=== PATIENT | female | born 1955 | race Caucasian/White ===

== ENCOUNTER 2017-03-28 09:20 | Emergency (ER) | payer OTHER ==
[~2017-03-28] VITALS: Ht 162.6 cm; Wt 82.1 kg
[~2017-03-28 09:20] MED LIST: AMA1 PO; ASPIR-LOW81 M1 PO; CHERATUSSIN AC 15 ML; DOXYCYCLINE MO100 MG PO; HUM7525 SC; HYDROCHLOROTHIAZIDE PO; LANTUS SOLOS100 U/M1 SQ; LISINOPRIL PO; VICTOZA SC; ZOC20 PO
[2017-03-28 10:38] VITALS: BP 145/80
== END 2017-03-28 10:41 | disposition home or self-care (01) ==
LOC: ED 09:20
DX: S90.112A Contusion of left great toe without damage to nail, initial encounter (principal); E11.9 Type 2 diabetes mellitus without complications; E78.00 Pure hypercholesterolemia, unspecified; Z79.4 Long term (current) use of insulin; W22.8XXA Striking against or struck by other objects, initial encounter; Y93.89 Activity, other specified; Y99.8 Other external cause status; Y92.89 Other specified places as the place of occurrence of the external cause

== ENCOUNTER 2017-09-20 13:14 | Emergency (ER) | payer OTHER ==
[~2017-09-20] VITALS: Ht 162.6 cm; Wt 95.7 kg
[2017-09-20 15:13] VITALS: BP 149/76
[2017-09-20 15:16] LABS: microscopic required? YES; urine erythrocyte 1+ (NEGATIVE)
[2017-09-20 15:22] LABS: BASOPHIL % 0.2 % (0-2); PLATELET COUNT 249 x10^3mcL (130-400); RED CELL DISTRIBUTION WIDTH 13.1 % (11.5-14.5)
[2017-09-20 15:29] LABS: CALCIUM 8.7 mg/dL (8.5-10.1); CARBON DIOXIDE 31.2 mmol/L (21-32); CHLORIDE SERUM 97 mmol/L (98-107); CREATININE SERUM 0.6 mg/dL (0.6-1.0); GFR1 > 60 mL/min; GLUCOSE SERUM 324 mg/dL (74-106); POTASSIUM SERUM 4.6 mmol/L (3.5-5.1); SODIUM SERUM 134 mmol/L (136-145)
[2017-09-20 15:33] LABS: ALKALINE PHOSPHATASE 103 U/L (46-116); ALT/SGPT 23 U/L (14-59); AST/SGOT 13 U/L (15-37); BILIRUBIN TOTAL 0.1 mg/dL (0.20-1.00); LIPASE 242 IU/L (73-393); TOTAL PROTEIN, SERUM 6.7 g/dL (6.4-8.2)
[2017-09-20 15:34] LABS: ALBUMIN 3.1 g/dL (3.4-5.0)
== END 2017-09-20 17:30 | disposition home or self-care (01) ==
LOC: ED 13:14
PROVIDERS: Emergency Medicine
DX: R10.11 Right upper quadrant pain (principal); E11.9 Type 2 diabetes mellitus without complications; Z79.4 Long term (current) use of insulin; Z90.49 Acquired absence of other specified parts of digestive tract
CPT/HCPCS: 36415

== ENCOUNTER 2018-05-23 16:15 | Emergency (ER) | payer OTHER ==
[~2018-05-23] VITALS: Ht 160 cm; Wt 102.5 kg
[2018-05-23 16:21] VITALS: Ht 160 cm; Wt 102.5 kg
[2018-05-23 18:15] LABS: BASOPHIL % 1.7 % (0-2); PLATELET COUNT 284 x10^3mcL (130-400)
[2018-05-23 18:29] LABS: CALCIUM 8.6 mg/dL (8.5-10.1); CARBON DIOXIDE 27.8 mmol/L (21-32); CHLORIDE SERUM 102 mmol/L (98-107); CREATININE SERUM 0.8 mg/dL (0.6-1.0); GFR1 > 60 mL/min; GLUCOSE SERUM 325 mg/dL (74-106); POTASSIUM SERUM 5.2 mmol/L (3.5-5.1); SODIUM SERUM 134 mmol/L (136-145)
[2018-05-23 18:34] LABS: ALKALINE PHOSPHATASE 133 U/L (46-116); ALT/SGPT 16 U/L (14-59); AST/SGOT 11 U/L (15-37); BILIRUBIN TOTAL 0.16 mg/dL (0.20-1.00); TOTAL PROTEIN, SERUM 6.5 g/dL (6.4-8.2)
[2018-05-23 18:35] LABS: ALBUMIN 2.4 g/dL (3.4-5.0)
[2018-05-23 20:32] VITALS: BP 148/74
== END 2018-05-23 20:32 | disposition home or self-care (01) ==
LOC: ED 16:15
PROVIDERS: Emergency Medicine
DX: L05.01 Pilonidal cyst with abscess (principal); E11.9 Type 2 diabetes mellitus without complications; E78.00 Pure hypercholesterolemia, unspecified
CPT/HCPCS: 82962; J2001

== ENCOUNTER 2018-05-25 12:07 | Emergency (ER) | payer OTHER ==
[~2018-05-25] VITALS: Ht 160 cm; Wt 105.4 kg
[2018-05-25 12:21] VITALS: Ht 160 cm; Wt 105.4 kg
[2018-05-25 14:16] VITALS: BP 155/77
== END 2018-05-25 14:16 | disposition home or self-care (01) ==
LOC: ED 12:07
DX: Z48.01 Encounter for change or removal of surgical wound dressing (principal); R68.83 Chills (without fever); E11.9 Type 2 diabetes mellitus without complications; E78.00 Pure hypercholesterolemia, unspecified
CPT/HCPCS: J2001

== ENCOUNTER 2018-05-27 13:48 | Emergency (ER) | payer OTHER ==
[~2018-05-27] VITALS: Ht 160 cm; Wt 101.6 kg
[2018-05-27 13:53] VITALS: BP 144/66; Ht 160 cm; Wt 101.6 kg
== END 2018-05-27 14:23 | disposition home or self-care (01) ==
LOC: ED 13:48
DX: Z48.00 Encounter for change or removal of nonsurgical wound dressing (principal); E11.9 Type 2 diabetes mellitus without complications; E78.00 Pure hypercholesterolemia, unspecified

== ENCOUNTER 2018-09-11 01:11 | Emergency (ER) | payer OTHER ==
[~2018-09-11] VITALS: Ht 162.6 cm; Wt 100.2 kg
[2018-09-11 01:19] VITALS: Ht 162.6 cm; Wt 100.2 kg
[2018-09-11 02:36] LABS: CALCIUM 7.5 mg/dL (8.5-10.1); CARBON DIOXIDE 26.4 mmol/L (21-32); CHLORIDE SERUM 98 mmol/L (98-107); CREATININE SERUM 0.9 mg/dL (0.6-1.0); GFR1 > 60 mL/min; POTASSIUM SERUM 5.1 mmol/L (3.5-5.1); SODIUM SERUM 130 mmol/L (136-145)
[2018-09-11 02:55] LABS: GLUCOSE SERUM 655 mg/dL (74-106)
[2018-09-11 04:26] LABS: microscopic required? YES; urine erythrocyte 2+ (NEGATIVE)
[2018-09-11 04:55] VITALS: BP 170/98
== END 2018-09-11 04:55 | disposition home or self-care (01) ==
LOC: ED 01:11
PROVIDERS: Emergency Medicine
DX: J06.9 Acute upper respiratory infection, unspecified (principal); E11.65 Type 2 diabetes mellitus with hyperglycemia; E78.00 Pure hypercholesterolemia, unspecified; Z90.49 Acquired absence of other specified parts of digestive tract; Z98.890 Other specified postprocedural states
CPT/HCPCS: 82962; J1815; J7030

== ENCOUNTER 2019-07-17 17:34 | Emergency (ER) | payer OTHER ==
[~2019-07-17] VITALS: Ht 160 cm; Wt 100.2 kg
[2019-07-17 17:49] VITALS: Ht 160 cm; Wt 100.2 kg
[2019-07-17 18:11] LABS: BASOPHIL % 0.4 % (0-2); PLATELET COUNT 268 x10^3mcL (130-400); RED CELL DISTRIBUTION WIDTH 13.9 % (11.5-14.5)
[2019-07-17 18:35] LABS: BILIRUBIN TOTAL 0.2 mg/dL (0.20-1.00); CALCIUM 7.6 mg/dL (8.5-10.1); CARBON DIOXIDE 24.8 mmol/L (21-32); CREATININE SERUM 1.1 mg/dL (0.6-1.0); POTASSIUM SERUM 5.3 mmol/L (3.5-5.1); TOTAL PROTEIN, SERUM 6.8 g/dL (6.4-8.2)
[2019-07-17 18:42] LABS: ALBUMIN 2.9 g/dL (3.4-5.0)
[2019-07-17 21:46] VITALS: BP 145/51
== END 2019-07-17 21:47 | disposition home or self-care (01) ==
LOC: ED 17:34
DX: K29.70 Gastritis, unspecified, without bleeding (principal); E11.65 Type 2 diabetes mellitus with hyperglycemia; R07.89 Other chest pain; E78.00 Pure hypercholesterolemia, unspecified
CPT/HCPCS: 82962; J1885; J7030; Q0092

== ENCOUNTER 2019-08-09 14:34 | Emergency (ER) | payer OTHER ==
[~2019-08-09] VITALS: Ht 160 cm; Wt 109.3 kg
[2019-08-09 14:41] VITALS: Ht 160 cm; Wt 109.3 kg
[2019-08-09 16:57] LABS: UA SPECIFIC GRAVITY 1.025 (1.005-1.035); microscopic required? YES; urine erythrocyte 2+ (NEGATIVE)
[2019-08-09 16:57] LABS: BASOPHIL % 0.3 % (0-2); PLATELET COUNT 257 x10^3mcL (130-400)
[2019-08-09 17:11] LABS: CALCIUM 7.6 mg/dL (8.5-10.1); CHLORIDE SERUM 104 mmol/L (98-107); CREATININE SERUM 0.9 mg/dL (0.6-1.0); GFR1 > 60 mL/min; GLUCOSE SERUM 329 mg/dL (74-106); POTASSIUM SERUM 5.3 mmol/L (3.5-5.1); SODIUM SERUM 138 mmol/L (136-145)
[2019-08-09 17:16] LABS: ALBUMIN 2.6 g/dL (3.4-5.0); ALKALINE PHOSPHATASE 83 U/L (46-116); ALT/SGPT 14 U/L (14-59); AST/SGOT 13 U/L (15-37); BILIRUBIN TOTAL 0.24 mg/dL (0.20-1.00); CHOLESTEROL 260 mg/dL (<200); HDL CHOLESTEROL 45 mg/dL (40-60); MAGNESIUM 2.2 mg/dL (1.8-2.4); TOTAL PROTEIN, SERUM 6.1 g/dL (6.4-8.2)
[2019-08-09 19:57] VITALS: BP 128/78
== END 2019-08-09 19:45 | disposition home or self-care (01) ==
LOC: ED 14:34
PROVIDERS: Emergency Medicine
DX: R53.1 Weakness (principal); E86.0 Dehydration; R42 Dizziness and giddiness; E11.65 Type 2 diabetes mellitus with hyperglycemia; E78.00 Pure hypercholesterolemia, unspecified
CPT/HCPCS: J2405; J7030; J8597; Q0092

== ENCOUNTER 2019-09-08 16:36 | Inpatient (IN) | payer OTHER ==
[~2019-09-08] VITALS: Ht 165.1 cm; Wt 104.3 kg
[2019-09-08 16:45] VITALS: Ht 165.1 cm; Wt 104.3 kg
[2019-09-08 17:32] LABS: BASOPHIL % 0.7 % (0-2); PLATELET COUNT 308 x10^3mcL (130-400); RED CELL DISTRIBUTION WIDTH 13.8 % (11.5-14.5)
[2019-09-08 17:40] LABS: CALCIUM 8.1 mg/dL (8.5-10.1); CARBON DIOXIDE 27.7 mmol/L (21-32); CREATININE SERUM 1.1 mg/dL (0.6-1.0); POTASSIUM SERUM 3.8 mmol/L (3.5-5.1)
[2019-09-08 17:48] LABS: BILIRUBIN TOTAL 0.36 mg/dL (0.20-1.00); TOTAL PROTEIN, SERUM 6.7 g/dL (6.4-8.2)
[2019-09-08 17:49] LABS: ALBUMIN 2.9 g/dL (3.4-5.0)
[2019-09-08 20:38] VITALS: BP 131/64
[2019-09-09] VITALS (7 sets, daily range): BP systolic 110–158; BP diastolic 50–79
[2019-09-09 07:04] LABS: BASOPHIL % 0.6 % (0-2); PLATELET COUNT 268 x10^3mcL (130-400)
[2019-09-09 07:31] LABS: CALCIUM 8.2 mg/dL (8.5-10.1); CARBON DIOXIDE 25.7 mmol/L (21-32); MAGNESIUM 2.1 mg/dL (1.8-2.4); POTASSIUM SERUM 3.6 mmol/L (3.5-5.1)
[2019-09-09 07:38] LABS: CHOLESTEROL/HDL RATIO 5.9
[2019-09-09] MEDS ORDERED: METOPROLOL TART25 M1 PO (10:11)
[2019-09-09] MEDS ORDERED: ATORVASTATIN CA40 M1 PO (10:11)
[2019-09-09] MEDS ORDERED: LOV100I SC (10:11)
[2019-09-09] MEDS ORDERED: L40I IV (10:12)
[2019-09-10 05:54] VITALS: BP 126/93
[2019-09-10 06:30] LABS: BASOPHIL % 0.4 % (0-2); PLATELET COUNT 222 x10^3mcL (130-400); RED CELL DISTRIBUTION WIDTH 13.9 % (11.5-14.5)
[2019-09-10 06:38] LABS: BILIRUBIN TOTAL 0.3 mg/dL (0.20-1.00); CALCIUM 8.1 mg/dL (8.5-10.1); CARBON DIOXIDE 29.4 mmol/L (21-32); CREATININE SERUM 1.1 mg/dL (0.6-1.0); POTASSIUM SERUM 3.7 mmol/L (3.5-5.1); TOTAL PROTEIN, SERUM 6.2 g/dL (6.4-8.2)
[2019-09-10 07:05] LABS: ALBUMIN 2.8 g/dL (3.4-5.0)
== END 2019-09-10 08:23 | disposition short-term general hospital (02) | DRG 280 ==
LOC: ED 16:36 → DU 18:54
PROVIDERS: Emergency Medicine; Internal Medicine Pulmonary Disease; ADMIT Internal Medicine Pulmonary Disease
DX: I21.A1 Myocardial infarction type 2 (principal); I50.23 Acute on chronic systolic (congestive) heart failure; E11.9 Type 2 diabetes mellitus without complications; E78.00 Pure hypercholesterolemia, unspecified; I11.0 Hypertensive heart disease with heart failure; I34.0 Nonrheumatic mitral (valve) insufficiency; I25.10 Atherosclerotic heart disease of native coronary artery without angina pectoris; E66.9 Obesity, unspecified; Z68.39 Body mass index [BMI] 39.0-39.9, adult; Z79.84 Long term (current) use of oral hypoglycemic drugs; Z83.3 Family history of diabetes mellitus; Z23 Encounter for immunization; Z79.899 Other long term (current) drug therapy
CPT/HCPCS: 82962; 83880; 85378; 90658; 94150; C9113; G0378; J1650; J1815; J1940; J7620; Q0092; Q9967

== ENCOUNTER 2020-09-19 19:50 | Emergency (ER) | payer OTHER ==
[~2020-09-19] VITALS: Ht 160 cm; Wt 100.2 kg
[~2020-09-19 19:50] MED LIST changes: +ATORVASTATIN CA40 M1 PO; +L40I IV; +LOV100I SC; +METOPROLOL TART25 M1 PO
[2020-09-19 20:01] VITALS: Ht 160 cm; Wt 100.2 kg
[2020-09-19 21:00] LABS: CALCIUM 7.9 mg/dL (8.5-10.1); CARBON DIOXIDE 26.6 mmol/L (21-32); CREATININE SERUM 2.4 mg/dL (0.6-1.0); POTASSIUM SERUM 4.7 mmol/L (3.5-5.1)
[2020-09-19 21:04] LABS: BASOPHIL % 0.3 % (0-2); PLATELET COUNT 219 x10^3mcL (130-400); RED CELL DISTRIBUTION WIDTH 13.7 % (11.5-14.5)
[2020-09-19 21:05] LABS: ALBUMIN 2.7 g/dL (3.4-5.0); BILIRUBIN TOTAL 0.87 mg/dL (0.20-1.00); TOTAL PROTEIN, SERUM 6.6 g/dL (6.4-8.2)
[2020-09-19 23:44] LABS: microscopic required? YES; urine erythrocyte 2+ (NEGATIVE)
[2020-09-20 00:34] VITALS: BP 136/87
== END 2020-09-20 00:34 | disposition short-term general hospital (02) ==
LOC: ED 19:50
PROVIDERS: Emergency Medicine
DX: I50.9 Heart failure, unspecified (principal); E11.9 Type 2 diabetes mellitus without complications; E78.00 Pure hypercholesterolemia, unspecified; N17.9 Acute kidney failure, unspecified; D64.9 Anemia, unspecified; Z20.828 Contact with and (suspected) exposure to other viral communicable diseases
CPT/HCPCS: 83880; J1940; Q0092